=== PATIENT | female | born 1950 | race Caucasian/White ===

== ENCOUNTER 2024-06-19 09:11 | Outpatient (AMB) | payer MEDICARE, SELFPAY ==
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
--- OUTSIDE RECORDS SUMMARY | 2024-06-19 09:50 | XMS_ITS | Clinical Summary ---
Author Organization [facility] Address [address] [place] [address] Phone Care Team Providers Care Distilling Department Supervisor Name Role Phone Kay Chowdhury MD Primary Care Provider + Surgical History Surgery Date Site/Laterality Comments BREAST MASS EXCISION Bilateral surgical bx early 90s BREAST CYST ASPIRATION 02/28/2015 - 02/28/2016 Left Social History Tobacco Use Types Packs/Day Years Used Date Smoking Tobacco: Never Assessed Comments No Sex and Gender Information Value Date Recorded Sex Assigned at Not on file Legal Sex Female 7:54 PM EST Gender Identity Not on file Sexual Orientation Not on file Obstetrics History Para Term AB IAB SAB Ectopic Multiple Livin g Live Births 3 Last Filed Vital Signs Vital Sign Reading Time Taken Comments Blood Pressure - - Pulse - - Temperature - - Respiratory Rate - - Oxygen Saturation - - Inhaled Oxygen Concentration - - Weight 88 kg (194 lb) 03/20/2024 9:09 AM EST Height 162.6 cm (5' 4 ) 03/20/2024 9:09 AM EST Body Mass Index 33.3 03/20/2024 9:09 AM EST Plan of Treatment Health Maintenance Due Date Last Done Comments Colorectal Cancer Screening: Colonoscopy 12/23/2023 Depression Screening 12/23/2023 Falls Risk Assessment 12/23/2023 Hepatitis C Screening 12/23/2023 Medicare Annual Wellness Visit 12/23/2023 Osteoporosis Screening (Bone Density Screening) 12/23/2023 Social Influencers of Health Screening 12/23/2023 Zoster Vaccines (2 of 2) 03/01/2024 01/05/2024 COVID-19 Vaccine ( season) 2024 10/28/2023, 11/18/2022, 06/20/2022, Additional history exists Influenza Vaccine (Season Ended) 2024 11/18/2022, 11/11/2021, 12/09/2020, Additional history exists Breast Cancer Screening 03/20/2026 03/20/19, 03/16/2023, 05/17/2018, Additional history exists DTaP,Tdap,and Td Vaccines (3 - Td or Tdap) 11/05/2027 11/04/2017, 05/09/2013 Cholesterol Screening (Lipid Panel) 07/10/2028 07/11/2023 Pneumococcal Vaccine: 50+ Years Completed 01/07/2022, 01/12/2021 RSV Immunization Adult Patients Completed 01/07/2023 HIB Vaccines Aged Out No longer eligi ble based on patient's age to complete this topic HPV Vaccines Aged Out No longer eligi ble based on patient's age to complete this topic Hepatitis A Vaccines Aged Out No long er eligible based on patient's age to complete this topic Hepatitis B Vaccines Aged Out No long er eligible based on patient's age to complete this topic IPV Vaccines Aged Out No longer eligi ble based on patient's age to complete this topic MMR Vaccines Aged Out No longer eligi ble based on patient's age to complete this topic Meningococcal ACWY Vaccine Aged Out N o longer eligible based on patient's age to complete this topic Meningococcal B Vaccine Aged Out No l onger eligible based on patient's age to complete this topic RSV Immunization Patients Under 20 months Aged Out No longer eligible based on patient's age to complete this topic Varicella Vaccines Aged Out No longer eligible based on patient's age to complete this topic Procedures Procedure Name Priority Date/Time Associated Diagnosis Comments MG MAMMO DIGITAL SCREENING W FAN BILAT Routine 03/20/2024 9:24 AM EST Encounter for screening mammogram for breast cancer from Last 3 Months or Most Recently Relevant to Health Maintenance Results * MG Mammo Digital Screening w Fan bilat (03/20/2024 9:24 AM EST) Anatomical Region Laterality Modality Breast Bilateral Mammography 03/21/2024 9:05 AM EST Impressions 03/21/2024 9:11 AM EST No mammographic evidence of malignancy. A negative mammogram in the presence of a clinically suspicious palpable abnormality does not preclude the possibility of malignancy or alter the indications for biopsy. PQRI CPT II 3342F Code 53393, 09443 PQRI 225 CPT II 7025F TISSUE DENSITY: There are scattered areas of fibroglandular density. (BI-RADS category B) IMPRESSION: Benign. BI-RADS CATEGORY: 2 - BENIGN RECOMMENDATION: Screening bilateral mammogram is recommended in 1 year. Mammo Location: [facility], [address] [place] [address] -------- FINAL REPORT -------- Dictated By: Lalo Navarro Dictated Date: 03/21/2024 09:05 ET Assigned Physician: Lalo Navarro Reviewed and Electronically Signed By: Lalo Navarro Signed Date: 03/21/2024 09:11 ET Workstation ID: [id number] Transcribed By: Self Edit Transcribed Date: 03/21/2024 09:05 ET Narrative 03/21/2024 9:11 AM EST CLINICAL: The patient is a 73 years Female presenting for routine screening mammography. ??Information provided with prior studies indicates that the patient has a history of left breast excisional biopsy as well as of left breast core biopsy. COMPARISON: Outside studies most recently 03/16/2023 and most remotely 04/07/2016. ?? TECHNIQUE: Full-field digital mammography of the breasts bilaterally consisting of tomosynthesis in MLO and CC projection is performed in the ONE Changee 2000-D unit. ??Computer aided detection utilizing the iCAD system was utilized. FINDINGS: The breasts are again seen to be composed of a combination of fatty and fibroglandular elements. ??A tissue marker from a previous biopsy is again seen in the upper-outer quadrant of the left breast. ??A few scattered benign calcifications are present bilaterally. ??There is no suspicious cluster of microcalcifications, mass, or area of architectural distortion. There is no skin thickening or nipple retraction. Procedure Note Lalo Navarro MD - 03/21/2024 CLINICAL: The patient is a 73 years Female presenting for routinescreening mammography. Information provided with prior studies indicatesthat the patient has a history of left breast excisional biopsy as well asof left breast core biopsy. COMPARISON: Outside studies most recently 03/16/2023 and most remotely04/07/2016. TECHNIQUE: Full-field digital mammography of the breasts bilaterallyconsisting of tomosynthesis in MLO and CC projection is performed in thePerceptisographe 2000-D unit. Computer aided detection utilizing the Moniystem was utilized. FINDINGS: The breasts are again seen to be composed of a combination offatty and fibroglandular elements. A tissue marker from a previous biopsyis again seen in the upper-outer quadrant of the left breast. A fewscattered benign calcifications are present bilaterally. There is nosuspicious cluster of microcalcifications, mass, or area of architecturaldistortion. There is no skin thickening or nipple retraction. IMPRESSION: No mammographic evidence of malignancy. A negative mammogram in the presence of a clinically suspicious palpableabnormality does not preclude the possibility of malignancy or alter theindications for biopsy. PQRI CPT II 3342F Code 58791, 29214 PQRI 225 CPT II 7025F TISSUE DENSITY: There are scattered areas of fibroglandular density.(BI-RADS category B) IMPRESSION: Benign. BI-RADS CATEGORY: 2 - BENIGN RECOMMENDATION: Screening bilateral mammogram is recommended in 1 year. Mammo Location: [facility], [facility], [address] [place] [address] -------- FINAL REPORT -------- Dictated By: Lalo Navarro Dictated Date: 03/21/2024 09:05 ET Assigned Physician: Lalo Navarro Reviewed and Electronically Signed By: Lalo Navarro Signed Date: 03/21/2024 09:11 ET Workstation ID: [id number] Transcribed By: Self Edit Transcribed Date: 03/21/2024 09:05 ET us Self Referral Sppl IMG BI PROCEDURES Final Resul t from Last 3 Months or Most Recently Relevant to Health Maintenance Insurance MEDICARE [facility] Care Teams Distilling Department Supervisor Relationship Specialty Start Date End Date Gloria-Kay Forbes MD [address] [place] [address], [address] [place] [address] PCP - General Internal Medicine 03/20/24
== END 2024-06-19 09:53 | disposition home or self-care (01) ==
PROVIDERS: PCP Student in an Organized Health Care Education/Training Program; Visit Provider Surgery Vascular Surgery
DX: I83.11 Varicose veins of right lower extremity with inflammation (principal); I89.0 Lymphedema, not elsewhere classified
CPT/HCPCS: 99204; G2211

== ENCOUNTER → 2024-06-19 09:11 | Outpatient (BNVA) | payer MEDICARE, SELFPAY | PROVIDERS: PCP Student in an Organized Health Care Education/Training Program; Visit Provider Surgery Vascular Surgery | DX: I83.11 Varicose veins of right lower extremity with inflammation (principal); I89.0 Lymphedema, not elsewhere classified | CPT/HCPCS: 99202 ==

== ENCOUNTER 2024-07-12 13:09 | Outpatient (REF) | payer MEDICARE, SELFPAY ==
--- OUTSIDE RECORDS SUMMARY | 2024-07-12 13:46 | XMS_ITS | Clinical Summary ---
Author Organization [facility] Address [address] [place] [address] Phone Care Team Providers Care Sanitary Inspector Name Role Phone Kay Chowdhury MD Primary [...] for biopsy. PQRI CPT II 3342F Code 51003, 24855 PQRI 225 CPT II 7025F TISSUE DENSITY: There are scattered areas of fibroglandular density. (BI-RADS category B) IMPRESSION: Benign. BI-RADS CATEGORY: 2 - BENIGN RECOMMENDATION: Screening bilateral mammogram is recommended in 1 year. Mammo Location: [facility], [facility], [address] [place] [address] -------- FINAL REPORT -------- Dictated By: Lalo Navarro Dictated Date: 03/21/2024 09:05 ET Assigned Physician: Lalo Navarro Reviewed and Electronically Signed By: Lalo Navarro Signed Date: 03/21/2024 09:11 ET Workstation ID: [id number] Transcribed By: Self Edit Transcribed Date: 03/21/2024 [...] and CC projection is performed in the SnappyTVe 2000-D unit. ??Computer aided detection utilizing the [...] MLO and CC projection is performed in theMedStartrographe 2000-D unit. Computer aided detection utilizing the LyricFindystem was utilized. FINDINGS: The breasts are again [...] for biopsy. PQRI CPT II 3342F Code 19116, 12137 PQRI 225 CPT II 7025F TISSUE DENSITY: There are scattered areas of fibroglandular density.(BI-RADS category B) IMPRESSION: Benign. BI-RADS CATEGORY: 2 - BENIGN RECOMMENDATION: Screening bilateral mammogram is recommended in 1 year. Mammo Location: [facility], [facility], [address] [place] [address] -------- FINAL REPORT -------- Dictated By: Lalo Navarro Dictated Date: 03/21/2024 09:05 ET Assigned Physician: Lalo Navarro Reviewed and Electronically Signed By: Lalo Navarro Signed Date: 03/21/2024 09:11 ET Workstation ID: [id number] Transcribed By: Self Edit Transcribed Date: 03/21/2024 09:05 ET us Self Referral Sppl IMG BI PROCEDURES Final Resul t from Last 3 Months or Most Recently Relevant to Health Maintenance Insurance MEDICARE [facility] Care Teams Sanitary Inspector Relationship Specialty Start Date End Date Gloria-Kay Forbes MD [address] [place] [address], [address] [place] [address] PCP - General Internal Medicine 03/20/24
== END 2024-07-12 13:10 | disposition home or self-care (01) ==
LOC: HO.US 13:09
PROVIDERS: PCP Student in an Organized Health Care Education/Training Program; Visit Provider Surgery Vascular Surgery
DX: I83.11 Varicose veins of right lower extremity with inflammation (principal)
CPT/HCPCS: 93970

== ENCOUNTER → 2024-07-12 13:20 | Outpatient (BNV) | payer MEDICARE, SELFPAY | PROVIDERS: PCP Student in an Organized Health Care Education/Training Program; Visit Provider Radiology Diagnostic Radiology | DX: I83.11 Varicose veins of right lower extremity with inflammation (principal); I87.2 Venous insufficiency (chronic) (peripheral) | CPT/HCPCS: 93970 ==

== ENCOUNTER 2024-08-07 14:41 | Outpatient (AMB) | payer MEDICARE, SELFPAY ==
--- NOTE | 2024-08-07 15:05 | MHC.OFFVIS ---
Vital Signs 08/07/24 15:06 Height 5 ft 4 in Weight 196 lb BMI 33.6 Intake Visit Reasons: Follow Up US Intake Note: follow up US 07/12/24. Pt states Right LE worse than Left LE. Pt states swelling and heaviness. Pt had bilateral Ligation 40 yrs ago. Operations Support Coordinator Required: No Accompanied by: Self / Same As Patient Allergies sulfur Allergy (Mild, Uncoded 08/07/24 15:07) Hives [facility] HPI Follow Up US: Details: Very pleasant 73-year-old female presents for follow-up regarding venous disease. She had worsening swelling especially after her 3rd . She had previous venous surgery performed in [facility]. She now presents for follow-up with venous insufficiency testing. Of note she has been using compression and has had worsening of venous symptoms. Review of Systems Const Reports as per HPI ENT Reports no additional complaints Card Denies chest pain, Denies chest pain at rest and Denies chest pain with activity Resp Denies chest congestion and Denies cough GI Reports no additional complaints Musc Details: pain over varicosities, aching of lower extremities, swelling, cramping, heaviness and tiredness, itching Denies abnormal gait Skin/Breast Reports pruritus and Denies wounds Neuro Reports no additional complaints and Denies abnormal gait Psych Denies no additional complaints Physical Exam Vital Signs: BMI result Body Mass Index 33.6 Const General: cooperative, healthy appearing and comfortable Orientation/consciousness: oriented to person, oriented to place and oriented to time Neck Carotids: no bruits Chest Chest palpation & inspection: normal inspection of the chest and normal palpation of entire chest wall Resp Effort & Inspection: normal respiratory effort and able to speak in complete sentences Cardio Rate: regular rate Heart sounds: S1 normal heart sound present and S2 normal heart sound present Peripheral pulses: Peripheral pulses 2+ throughout GI Inspection: Yes normal to inspection Skin Other: +2 edema, large rope-like varicosities greater than 4 mm CEAP Classification C4 - skin color changes Ep - Etiology Primary As - superficial veins P - reflux General skin exam: dry skin Neuro General: oriented to person, oriented to place and oriented to time Extrem Right lower extremity: full ROM, normal capillary refill and edema Left lower extremity: full ROM, normal capillary refill and edema Psych Mental Status: mental status grossly normal Results Reviewed Results Reviewed: Brief summary of venous insufficiency testing is as follows: right great saphenous vein: Positive right small saphenous vein: negative right accessory vein: none present left great saphenous vein: Positive left small saphenous vein: negative left accessory vein: none present Please note there is no evidence of any venous aneurysms or significant tortuosity Assessment & Plan Assessment & Plan (1) Varicose veins of right lower extremity with inflammation: Code(s): I83.11 - Varicose veins of right lower extremity with inflammation Category: Medical Plan: This patient has varicose veins with inflammation. They continue to be a source of discomfort for the patient. The patient has tried conservative treatment with compression, leg elevation and exercise program for over 3 months time. They have been compliant with all treatment. This has provided minimal relief for the patient. I do not anticipate this course of treatment will alter the underlying etiology. The patient has been scheduled for lower extremity venous treatment inclusive of --- right great saphenous vein radiofrequency ablation. Risks, benefits, and complications of this procedure has been discussed in detail with the patient including but not limited to bleeding, infection, and the development of a DVT. The patient has demonstrated a clear understanding and has consented. We will schedule the patient as soon as possible. Thank you for allowing us to participate in this patient's care. If there are any questions or concerns please do not hesitate to contact us. Coding Level of Care Code Est Pt Level 4 (93151) Complex EM visit Add On G2211 Diagnoses Varicose veins of right lower extremity with inflammation I83.11
[2024-08-07 15:06] VITALS: BMI 33.6
--- OUTSIDE RECORDS SUMMARY | 2024-08-07 17:41 | XMS_ITS | Clinical Summary ---
Author Organization [facility] Address [address] [place] [address] Phone Care Team Providers Care Credit Or Loans Officer Name Role Phone Kay Chowdhury MD Primary [...] for biopsy. PQRI CPT II 3342F Code 41344, 84607 PQRI 225 CPT II 7025F TISSUE DENSITY: There are scattered areas of fibroglandular density. (BI-RADS category B) IMPRESSION: Benign. BI-RADS CATEGORY: 2 - BENIGN RECOMMENDATION: Screening bilateral mammogram is recommended in 1 year. Mammo Location: [facility], [facility], [address] [place] [address] -------- FINAL REPORT -------- Dictated By: Lalo Navarro Dictated Date: 03/21/2024 09:05 ET Assigned Physician: Lalo Navarro Reviewed and Electronically Signed By: Lalo Navarro Signed Date: 03/21/2024 09:11 ET Workstation ID: [id number] Transcribed By: Self Edit Transcribed Date: 03/21/2024 [...] and CC projection is performed in the Ethonovae 2000-D unit. ??Computer aided detection utilizing the [...] MLO and CC projection is performed in theBoxerographe 2000-D unit. Computer aided detection utilizing the Perlegen Sciencesystem was utilized. FINDINGS: The breasts are again [...] for biopsy. PQRI CPT II 3342F Code 69337, 03045 PQRI 225 CPT II 7025F TISSUE DENSITY: There are scattered areas of fibroglandular density.(BI-RADS category B) IMPRESSION: Benign. BI-RADS CATEGORY: 2 - BENIGN RECOMMENDATION: Screening bilateral mammogram is recommended in 1 year. Mammo Location: [facility], [facility], [address] [place] [address] -------- FINAL REPORT -------- Dictated By: Lalo Navarro Dictated Date: 03/21/2024 09:05 ET Assigned Physician: Lalo Navarro Reviewed and Electronically Signed By: Lalo Navarro Signed Date: 03/21/2024 09:11 ET Workstation ID: [id number] Transcribed By: Self Edit Transcribed Date: 03/21/2024 09:05 ET us Self Referral Sppl IMG BI PROCEDURES Final Resul t from Last 3 Months or Most Recently Relevant to Health Maintenance Insurance MEDICARE [facility] Care Teams Credit Or Loans Officer Relationship Specialty Start Date End Date Gloria-Kay Forbes MD [address] [place] [address], [address] [place] [address] PCP - General Internal Medicine 03/20/24
== END 2024-08-08 10:13 | disposition home or self-care (01) ==
PROVIDERS: PCP Student in an Organized Health Care Education/Training Program; Visit Provider Surgery Vascular Surgery
DX: I83.11 Varicose veins of right lower extremity with inflammation (principal)
CPT/HCPCS: 99214; G2211

== ENCOUNTER → 2024-08-07 14:41 | Outpatient (BNVA) | payer MEDICARE, SELFPAY | PROVIDERS: PCP Student in an Organized Health Care Education/Training Program; Visit Provider Surgery Vascular Surgery | DX: I83.11 Varicose veins of right lower extremity with inflammation (principal) | CPT/HCPCS: 99212 ==